=== PATIENT | female | born 1950 | race Caucasian/White ===

== ENCOUNTER → 2016-11-07 | Outpatient (CLI) | payer MEDICARE, OTHER ==
--- NOTE | 2016-11-07 15:51 | RADIOLOGY REPORT PS360 ---
US RUQ-(ABD LTD)1ORGAN/QUAD/FU HISTORY: Upper abdominal pain after eating ELEVATED LIVER ENZYMES ORDERING PHYSICIAN: Kay Dior APRN PATIENT AGE: 66 years COMPARISON: None FINDINGS: PANCREAS:Unremarkable. No obvious mass or abnormal fluid collection. No ductal dilatation LIVER:No focal liver lesions demonstrated. Homogeneous echogenicity. No intrahepatic biliary ductal dilatation evident RIGHT KIDNEY:Unremarkable. Normal size and echogenicity. No hydronephrosis GALLBLADDER:There is trace amount sludge in the gallbladder. No shadowing stones, wall thickening, pericholecystic fluid, or biliary dilatation evident. IMPRESSION: Minimal gallbladder sludge otherwise negative right upper quadrant ultrasound
--- NOTE | 2016-11-07 18:05 | RADIOLOGY REPORT PS360 ---
MRI-L-SPINE W/O, MRI-3D RENDERING/MYELOGRAM HISTORY: Acute bilateral lower back pain with sciatica, low back pain radiating down both legs ACUTE BILATERAL LOW BACK PAIN, WITH SCIATICA ORDERING PHYSICIAN: Kay Dior APRN PATIENT AGE: 66 years COMPARISON: Radiograph of 10/16/2016 TECHNIQUE: Standard multiplanar multiecho sequences are performed without contrast. 3-D MIP and myelographic images are also rendered and reviewed FINDINGS: There is normal alignment. The spinal cord ends at the T12-L1 level. T11-T12: Mild disc desiccation. T12-L1: Unremarkable. L1-L2: Minor degenerative disc disease with minimal anterior osteophytes. L2-L3: Mild degenerative disc disease with right foraminal and lateral disc osteophyte complex which is abutting the exiting L2 nerve root. There is mild right lateral recess narrowing as well. L3-L4: Minimal bulging disc. L4-5: Mild concentric bulging disc with moderate facet and ligamentum flavum hypertrophy with bilateral lateral recess narrowing abutting the L5 nerve roots anteriorly on both sides slightly more prominent on the right. There is mild narrowing of the canal at this level. L5-S1: Mild concentric bulging disc. Tarlov cysts are present on the right S1. There are multiple T1 and T2 hyperintense lesions of the spine at T11, T12, L1, L2, and L5. These are consistent with hemangiomas and/or lipomatous involvement. IMPRESSION: 1. Mild spondylosis of the lumbar spine as detailed above. Please see above for detailed description of each level. 2. Mild right foraminal and lateral recess narrowing from a disc osteophyte complex abutting the exiting L2 nerve root 3. Bulging disc with borderline canal stenosis along with facet and ligamentum hypertrophy with bilateral lateral recess narrowing abutting the L5 nerve roots bilaterally 4. No disc herniation.,
== END ==
LOC: RAD 07:54
DX: R94.5 Abnormal results of liver function studies (principal)

== ENCOUNTER → 2016-11-20 | Outpatient (CLI) | payer MEDICARE, OTHER ==
--- NOTE | 2016-11-22 13:17 | RADIOLOGY REPORT PS360 ---
DIG MAMM-SCREEN ABDIRAHMAN W/CAD CAD Screening COMPARISON: Digital mammograms 12/20/2015 and 11/03/2014 INDICATION: There is no personal or family history of breast cancer TECHNIQUE: Standard CC and MLO images were obtained. R2 CAD reviewed. FINDINGS: Moderate diffuse fibroglandular densities are seen in both breasts. There is a stable tiny benign-appearing nodular density upper outer quadrant left breast. There is no new or suspicious lesion in either breast and there are no suspicious microcalcifications. IMPRESSION: Fibrofatty parenchyma with no suspicious lesion seen recommend yearly follow-up BI-RADS CATEGORY: 2_Benign RECOMMENDED FOLLOWUP: 12M 12 MONTH FOLLOW-UP (A letter has been sent to the patient regarding results of the study.)
== END ==
LOC: RAD 10:51
DX: Z12.31 Encounter for screening mammogram for malignant neoplasm of breast (principal)
CPT/HCPCS: G0202